=== PATIENT | male | born 1950 | race Caucasian/White ===

== ENCOUNTER 2020-11-05 22:13 | Inpatient (IN) | payer OTHER, SELFPAY ==
[~2020-11-05] VITALS: Ht 167.6 cm; Wt 72.6 kg
[2020-11-05 22:20] VITALS: BP_SYST 127
[2020-11-05] MEDS ORDERED: KETOROLAC TROMETHAMINE 30 MG VIAL ONE (23:55)
[2020-11-06] MEDS ORDERED: KETOROLAC TROMETHAMINE 30 MG VIAL IM ONE
[2020-11-06] MEDS ORDERED: IPRATROPIUM/ALBUTEROL SULFATE 3 ML AMPUL.NEB (DUONEB) INH ONE
[2020-11-06 00:12] LABS: BASOPHILS % (AUTO) 0.1 % (0.0-2.0); HEMATOCRIT 46.4 % (36-54); HEMOGLOBIN 15.7 g/dL (14.0-18.0); LYMPHOCYTES # (AUTO) 0.6 K/uL (1.0-5.5); LYMPHOCYTES % (AUTO) 3.2 % (20.5-51.5); MEAN CORPUSCULAR HEMOGLOBIN 30 pg (27-31); MEAN CORPUSCULAR HGB CONC 34 % (32-36); MEAN CORPUSCULAR VOLUME 88 fL (79.0-98.0); MONOCYTES # (AUTO) 1.1 K/uL (0.0-1.0); MONOCYTES % (AUTO) 5.7 % (1.7-9.3); NEUTROPHILS # (AUTO) 18.3 K/uL (1.8-7.7); PLATELET COUNT (AUTO) 407 K/uL (130-430); RED BLOOD CELL COUNT(AUTO) 5.26 MIL/uL (4.2-6.2); WHITE BLOOD COUNT (AUTO) 20.1 K/uL (4.8-10.8)
[2020-11-06 00:34] LABS: CALCIUM 9.6 mg/dL (8.4-11.0); POTASSIUM 4.3 mmol/L (3.5-5.1); TOTAL BILIRUBIN 1.4 mg/dL (0.0-1.0)
[2020-11-06 00:40] LABS: CREATININE 2.39 mg/dL (0.55-1.30)
[2020-11-06 01:17] LABS: CREATINE KINASE MB 83.9 ng/mL (0-3.6)
[2020-11-06] MEDS ORDERED: cefTRIAXone 1 GM in D5W 50 ML IV ONE (02:15)
[2020-11-06] MEDS ORDERED: VANCOMYCIN HCL 1,000 MG in NS 250 ML IV ONE (02:15)
[2020-11-06] MEDS ORDERED: ENOXAPARIN SODIUM 60 MG/0.6 ML SYRINGE SUBCUT ONE (02:30)
[2020-11-06] MEDS ORDERED: VANCOMYCIN HCL 1000 MG/VIAL IV ONE (02:31)
[2020-11-06] MEDS ORDERED: cefTRIAXone 1 GM IVPB PREMIX 50 ML IV ONE (02:38)
[2020-11-06] MEDS ORDERED: NACL 0.9% 1,000 ML IV ONE (03:30)
[2020-11-06 05:44] VITALS: BP_SYST 120
[2020-11-06] MEDS ORDERED: NACL 0.9% 1,000 ML IV SCH (06:00)
[2020-11-06] MEDS ORDERED: ACETAMINOPHEN 325 MG TABLET PO PRN (06:00)
[2020-11-06] MEDS ORDERED: NALOXONE HCL 0.4 MG/ML AMP (NARCAN) IVP PRN (06:00)
[2020-11-06] MEDS ORDERED: AZITHROMYCIN 500 MG in NS 250 ML IV SCH ×2 (06:00→09:00)
[2020-11-06] MEDS ORDERED: MORPHINE 2 MG/ML INJ. SYRINGE IVP PRN (06:00)
[2020-11-06] MEDS ORDERED: ENOXAPARIN SODIUM 80 MG/0.8 ML SYRINGE SUBCUT SCH ×2 (06:15→09:00)
== END 2020-11-06 05:45 | disposition short-term general hospital (02) | DRG 871 ==
LOC: SED 22:13 → STU 11-06 04:16
PROVIDERS: ADMIT Internal Medicine Hospice and Palliative Medicine; ATTEND Internal Medicine Hospice and Palliative Medicine
DX: A41.9 Sepsis, unspecified organism (principal); J18.9 Pneumonia, unspecified organism; I63.9 Cerebral infarction, unspecified; I10 Essential (primary) hypertension; Z20.822 Contact with and (suspected) exposure to COVID-19; Z82.49 Family history of ischemic heart disease and other diseases of the circulatory system
CPT/HCPCS: 36415; 36600; 70450-TC; 71045; 76376; 80053; 82550-TC; 82553-TC; 82803-TC; 82962; 83605; 84484; 85025; 85379; 85384-TC; 85651-TC; 86140; 87040-TC; 93005; 94640; 96365; 96368; 96372; 99285; G0378; J0456; J0696; J1650; J1885; J3370; J7030; J7050; J7060